=== PATIENT | male | born 2000 | race Caucasian/White ===

== ENCOUNTER 2020-09-18 20:35 | Emergency (ER) | payer OTHER, SELFPAY ==
--- NOTE | ~2020-09-18 | XR_ITS ---
EXAMINATION: XR hand LT min 3V INDICATION: Right second finger pain and laceration TECHNIQUE: Three views of the right hand are obtained. COMPARISON: None available FINDINGS: Bone alignment is normal. There is no fracture. The joint spaces are maintained. There is a soft tissue defect at the lateral aspect of the second finger near the distal phalanx. No underlying osseous abnormality is identified. There is no radiopaque foreign body. IMPRESSION: 1. Soft tissue laceration of the distal second finger without underlying osseous abnormality or radio paque foreign body. Reviewed, dictated and finalized at location A. IMPRESSION: 1. Soft tissue laceration of the distal second finger without underlying osseou s abnormality or radiopaque foreign body.
[2020-09-18 20:37] VITALS: BP 136/66; PULSE 63; RESP 16; TEMP 36.3; O2SAT 97
--- NOTE | 2020-09-18 22:21 | ED.UPPEXIN ---
HPI - Extremity Injury (Upper) General Chief Complaint: Extremity Injury, Upper Stated Complaint: left finger injury Time Seen by Provider: 09/18/20 21:02 Source: patient Mode of arrival: ambulatory Limitations: no limitations History of Present Illness HPI narrative: Patient is a 20 year old male who presents with laceration to left index finger. He reports cutting with a box person. He denies other injuries. Bleeding controlled with dressing. Patient is unaware when he had last tetanus shot. MD complaint: injury to: left and finger Related Data Allergies Allergy/AdvReac Type Severity Reaction Status Date / Time No Known Drug Allergies Allergy Unknown Unverified 07/27/17 10:25 Review of Systems Review of Systems: Narrative: CONSTITUTIONAL: Denies fever, chills, or sweats. EYES: Denies visual changes, redness, or discharge. ENT: Denies rhinorrhea, congestion, sore throat, or otalgia. CARDIOVASCULAR: Denies chest pain, palpitations, or edema. RESPIRATORY: Denies cough or dyspnea. GASTROINTESTINAL: Denies abdominal pain, nausea, vomiting, or diarrhea. GENITOURINARY: Denies dysuria or hematuria. SKIN: Laceration to left index finger MUSCULOSKELETAL: Denies back pain, joint pain, or myalgia. NEUROLOGIC: Denies headache, numbness, dizziness, or weakness. PSYCHIATRIC: Denies anxiety or depression. [facility] Past Medical History Medical History (Updated 09/18/20 @ 22:29 by PHOENIX Puri) Hearing impaired Surgical History Surgical History History of cochlear implant Social History Social History (Updated 09/18/20 @ 22:24 by PHOENIX Puri) Smoking status: Never smoker Alcohol intake: never Substance use: never Living arrangements: with family Occupation/Education: occupation Comments At the time of signature, I have reviewed and agree with nursing past medical, surgical, social, and family history unless otherwise noted. Please see nursing chart for further information. There is no relevant family history pertinent to the presenting complaint. Exam Narrative: Exam Narrative: GENERAL: Well-appearing, well-nourished, and in no acute distress. HEAD: Normocephalic, atraumatic. EYES: EOMI. No redness or drainage. Conjunctiva are normal. ENT: Mucous membranes pink and moist. CHEST: No respiratory distress. HEART: Regular rate and rhythm. EXTREMITIES: Normal range of motion. No edema. SKIN: Approximate 2 cm laceration to the distal tip of left index finger, distal sensation intact, good capillary refill NEURO: No focal deficits. Alert and oriented x3. Gait steady. PSYCH: Normal affect. No signs of depression or anxiety. Course Vital Signs Vital signs: Vital Signs Temperature 36.3 C L 09/18/20 20:37 Pulse Rate 63 09/18/20 20:37 Respiratory Rate 16 09/18/20 20:37 Blood Pressure 136/66 09/18/20 20:37 Pulse Oximetry 97 09/18/20 20:37 Temperature 36.3 C L 09/18/20 20:37 Pulse Rate 63 09/18/20 20:37 Respiratory Rate 16 09/18/20 20:37 Blood Pressure 136/66 09/18/20 20:37 Pulse Oximetry 97 09/18/20 20:37 Reviewed. Patient has been instructed to follow-up with his PCP regarding his blood pressure. Procedures Laceration Laceration 1: Date: 09/18/20 Time: 22:25 Site: hand Side (If applicable): left Size (cm): 2 Description: linear Depth: simple, single layer Local Anesthetic: lidocaine 1% Amount of anesthesia used (mL): 5 Pre-repair: irrigated ====== Skin Level ====== Size (cm): 6-0 Number of sutures: 10 Technique: simple, interrupted ====== Subcutaneous Layer ====== ====== Muscle Layer ====== ====== Tendon Layer ====== MDM - Extremity Injury (Upper) [facility] Narrative Medical decision making narrative: X-ray of finger showed no fracture or acute abnormality. Wound cleansed and sutured, dressing a
[2020-09-18 22:52] VITALS: BP 123/70; PULSE 60; RESP 18; TEMP 36.7; O2SAT 100
[2020-09-18] MEDS: TETANUS,DIPHTHERIA,AC PERTUSSIS ADULT (0.5 ML) BOOSTRIX IM (22:58)
== END 2020-09-18 23:02 | disposition home or self-care (01) ==
PROVIDERS: Emergency Provider Nurse Practitioner
DX: S61.211A Laceration without foreign body of left index finger without damage to nail, initial encounter (principal); W26.8XXA Contact with other sharp object(s), not elsewhere classified, initial encounter; Z23 Encounter for immunization
CPT/HCPCS: 12001; 73130; 90471; 90715; 99283

== ENCOUNTER 2020-11-06 12:25 | Emergency (ER) | payer OTHER, SELFPAY ==
[2020-11-06 12:30] VITALS: BP 126/70; PULSE 79; RESP 18; TEMP 37.6; O2SAT 98
[2020-11-06 12:53] LABS: Basophils Absolute Auto 0.1 K/mm3 (0.0-0.1); Basophils Percent Auto 1.2 % (0.2-1.2); Eosinophils Percent Auto 0.2 % (0-4.4); Hematocrit 44.5 % (42.0-52.0); Hemoglobin 15.3 g/dL (14.0-18.0); Immature Granulocyte Absolute 0.02 K/mm3 (0.00-0.031); Immature Granulocyte Percent A 0.5 % (0-0.5); Lymphocytes Absolute Auto 1.94 K/mm3 (0.9-3.2); Lymphocytes Percent Auto 47.8 % (18.3-44.2); Mean Corpuscular HGB Conc 34.4 g/dl (32-36); Mean Corpuscular Hemoglobin 28.9 pg (26-34); Mean Corpuscular Volume 84.1 fl (80-100); Monocytes Absolute Auto 0.4 K/mm3 (0.1-0.6); Monocytes Percent Auto 10.3 % (2.6-8.5); Neutrophils Absolute Auto 1.6 K/mm3 (1.3-6.7); Platelet Count Result 161 k/mm3 (150-375); Red Blood Count 5.29 M/mm3 (4.6-6.20); Red Cell Distribution Width 12.5 % (11.5-14.5); White Blood Count 4.1 K/mm3 (4.5-10.0)
[2020-11-06 13:04] LABS: Anion Gap 8 mmol/L (8-16); Blood Urea Nitrogen 8 mg/dL (9-20); Calcium 9.4 mg/dL (8.4-10.2); Carbon Dioxide 24 mmol/L (22-30); Chloride 105 mmol/L (98-107); Estimated CRCL calculation 115 ml/min; Estimated Glomerular Filt Rate > 60; Glucose 89 mg/dL (75-110); Potassium 4.1 mmol/L (3.4-5.0); Sodium 137 mmol/L (137-145)
[2020-11-06 13:05] LABS: INR 1.1; Partial Thromboplastin Time 31.1 SECONDS (22.3-36.8); Prothrombin Time 14.1 Seconds (11.1-14.7)
[2020-11-06 13:15] LABS: Atypical Lymphocytes Present; Platelet Estimate Adequate (Adequate)
[2020-11-06 13:16] VITALS: BP 142/86; PULSE 78; RESP 18; O2SAT 99
[2020-11-06 13:36] VITALS: BP 130/63; PULSE 81; RESP 16; O2SAT 100
[2020-11-06 13:40] LABS: Erythrocyte Sedimentation Rate 17 mm/hr (0-20)
--- NOTE | 2020-11-06 13:41 | ED.GENADULT ---
HPI - General Adult General Chief complaint: Unspecified Stated complaint: fever, stiff neck, r/o meningitis per pcp Time Seen by Provider: 11/06/20 13:38 Source: patient Mode of arrival: ambulatory Limitations: no limitations History of Present Illness HPI narrative: Patient is a 20-year-old male with a history of cochlear implants who presents for evaluation of neck pain and intermittent fever. Patient states he has had neck pain since November 03 with intermittent fever in that timeframe. No fever today. Patient reports neck pain and stiffness. He denies severe headache. He reports he had a sore throat and runny nose last week and was concerned maybe he had a sinus infection. He was never on any antibiotics. Patient reports he has a history of positive Covid exposure in his father in April 2020, otherwise has not had a positive Covid test himself. Patient is not vaccinated for Covid. He does have a meningococcal vaccination given his cochlear implant status. Patient denies any lower back pain. Denies difficulty walking. No nausea, vomiting or vision changes. No altered mentation. Patient did see a chiropractor for his mild neck pain and had an adjustment done 2 days ago. Related Data Home Medications Medication Instructions Recorded Confirmed No Home Medications 09/26/20 09/26/20 Allergies Allergy/AdvReac Type Severity Reaction Status Date / Time No Known Drug Allergies Allergy Unknown Unverified 07/27/17 10:25 Review of Systems Review of Systems: Narrative: CONSTITUTIONAL: Reports intermittent fever and chills EYES: Denies visual changes, redness, or discharge. ENT: Denies rhinorrhea, congestion, reports sore throat without otalgia. Reports neck pain CARDIOVASCULAR: Denies chest pain, palpitations, or edema. RESPIRATORY: Denies cough or dyspnea. GASTROINTESTINAL: Denies abdominal pain, nausea, vomiting, or diarrhea. GENITOURINARY: Denies dysuria or hematuria. SKIN: Denies rash or itching. MUSCULOSKELETAL: Denies back pain, joint pain, or myalgia. NEUROLOGIC: Denies current headache, numbness, or weakness. [facility] Past Medical History Medical History Cochlear implant in place Hearing impaired Surgical History Surgical History History of cochlear implant History of hernia surgery Family History Family History Mother Hypertension Social History Social History Smoking packs per day: 1 Smoking cigarettes per day: 20.0 Smoking status: Current every day smoker Alcohol intake: never Substance use: never Gender identity (if verbalized by the patient): Male Exam Narrative: Exam Narrative: GENERAL: Awake, alert, conversant HEAD: Normocephalic, atraumatic. EYES: PERRLA and EOMI. ENT: Nares clear, no rhinorrhea or epistaxis. Mucous membranes moist. Uvula is midline. No tongue edema. No erythema or exudate of the posterior oropharynx. Cochlear implants in place. NECK: Supple.Patient is able to flex and extend his neck. No cervical or submandibular lymphadenopathy CHEST: No respiratory distress, breathing even and non labored HEART: Regular rate, sinus rhythm ABDOMEN:Non distended, non tender EXTREMITIES: Normal range of motion. No edema. SKIN: Warm, dry, no rash. NEURO:No focal deficits. Alert and oriented x3. EOMs intact without nystagmus. No facial droop/asymmetry noted bilaterally. Grimace intact. Intact sensation in face. Hearing intact bilaterally. Shoulder shrug intact. Strength 5/5 bilateral upper extremities. Strength 5/5 bilateral lower extremities. Reflexes 2+ patellar. Ambulatory with a narrow base, steady gait, no ataxia Course Vital Signs Vital signs: Vital Signs Temperature 37.6 C 11/06/20 12:30 Pulse Rate 79 11/06/20 12:30 Respiratory Rate 18
[2020-11-06] MEDS: ACETAMINOPHEN 500 MG TABLET 1000 MG PO (14:46)
[2020-11-06 16:21] VITALS: BP 110/71; PULSE 69; RESP 16; O2SAT 99
== END 2020-11-06 16:21 | disposition home or self-care (01) ==
PROVIDERS: Emergency Medicine; Emergency Provider Emergency Medicine; PCP Internal Medicine
DX: M54.2 Cervicalgia (principal); R50.9 Fever, unspecified; F17.210 Nicotine dependence, cigarettes, uncomplicated; Z96.21 Cochlear implant status
CPT/HCPCS: 36415; 80048; 85025; 85610; 85652; 85730; 86140; 87081; 87880; 99283; A9270